=== PATIENT | female | born 1965 | race Caucasian/White ===

== ENCOUNTER 2020-06-19 09:50 | Emergency (ER) | payer OTHER ==
[~2020-06-19] VITALS: Ht 154.9 cm; Wt 61.2 kg
[2020-06-19 10:27] LABS: ABSOLUTE EOSINOPHILS 0.4 thou/uL (0.0-0.7); ABSOLUTE LYMPHOCYTES 2.4 thou/uL (0.8-5.3); ABSOLUTE MONOCYTES 0.6 thou/uL (0.0-1.2); ABSOLUTE NEUTROPHILS 4.3 thou/uL (1.6-8.1); BASOPHILS 0.6 %; HEMATOCRIT 38.1 % (37.0-47.0); HEMOGLOBIN 12.9 gm/dL (12.0-15.0); LYMPHOCYTES 30.7 %; MCH 31.4 pg (26.0-34.0); MCHC 33.8 g/dL (28.0-37.0); MCV 92.9 fL (80.0-100.0); MONOCYTES 7.6 %; MPV 8.5 fl. (7.2-11.1); NUCLEATED RBCS 0 /100WBC; PLATELET COUNT* 257 thou/uL (150-400); POLYS 56.1 %; RDW-CV 13.4 % (10.5-14.5); WBC 7.7 thou/uL (4.0-11.0)
[2020-06-19 10:48] LABS: APTT 25.9 Seconds (25.0-31.3); PROTIME 10.5 Seconds (9.20-11.50)
[2020-06-19 11:20] LABS: URINE BILIRUBIN 1+ (Negative); URINE BLOOD TRACE (Negative); URINE CLARITY CLEAR; URINE COLOR STRAW; URINE GLUCOSE-RANDOM NEGATIVE (Negative); URINE KETONES NEGATIVE (Negative); URINE LEUKOCYTES-REFLEX 1+ (Negative); URINE NITRITE-REFLEX NEGATIVE (Negative); URINE PROTEIN NEGATIVE (Negative); URINE SPECIFIC GRAVITY <= 1.005 (1.005-1.030); URINE UROBILINOGEN 0.2 E.U./dl (0.2-1.0)
[2020-06-19 11:22] LABS: ICTOTEST (BILI CONFIRMATORY) Negative (Negative)
[2020-06-19 11:28] LABS: BACTERIA-REFLEX 1-9 Few /HPF (None Seen); RENAL EPITHELIAL CELLS 0-3 Few /LPF (None Seen); SQUAMOUS >10 Many /LPF (0-3); URINE RBC None Seen /HPF (0-2); URINE WBC-REFLEX 0-5 Rare /HPF (0-5)
[2020-06-19 11:29] LABS: CASTS None Seen /LPF (None Seen); CRYSTALS None Seen /LPF (None Seen); MUCUS None Seen strn/LPF (None Seen)
[2020-06-19 11:40] VITALS: BP 111/61
[2020-06-19 11:45] LABS: ALBUMIN 3.9 g/dL (3.4-5.0); CREATININE 0.9 mg/dL (0.6-1.3); POTASSIUM 3.6 mmol/L (3.5-5.1); TOTAL BILIRUBIN 0.5 mg/dL (<0.1-1.0); TOTAL PROTEIN 7.2 g/dL (6.4-8.2)
[2020-06-19 11:50] LABS: CALCIUM 8.7 mg/dL (8.5-10.1)
--- NOTE | 2020-06-19 17:44 | EKG ---
[place] [address] ELECTROCARDIOGRAM REPORT Name: MAYTE CHANEY Room: [facility]#: [id number] Admission: 06/19/20 Attend Phys: Discharge: 06/19/20 Date of : 67 Date of Service: 06/19/20 0958 Report #: [id number] THIS REPORT FOR: //name// [facility] ED Test Date: 2020-06-19 Test Time: 09:58:34 Pat Name: MAYTE CHANEY Department: Room: Gender: F [employer]: : 1965 Requested By: Blake Collins Order Number: [id number] MD: Bruce Dillard Measurements Intervals [place] Rate: 61 P: 1 IN: 117 QRS: 50 QRSD: 92 T: 12 QT: 389 QTc: 392 Interpretive Statements Sinus rhythm Borderline short IN interval Baseline wander in lead(s) V2 No previous ECG available for comparison Electronically Signed On 06-19-2020 17:43:50 CDT by Bruce Dillard [email or web address] <ELECTRONICALLY SIGNED> By: Bruce Dillard MD, FACC 06/19/20 1743 0958 0958 Bruce Dillard MD, [facility] /EPI
== END 2020-06-19 11:40 | disposition home or self-care (01) ==
LOC: M.ERS 09:50
PROVIDERS: Family Medicine
DX: R42 Dizziness and giddiness (principal); R79.1 Abnormal coagulation profile